=== PATIENT | male | born 1995 | race Caucasian/White ===

== ENCOUNTER 2017-10-18 17:32 | Emergency (ER) | payer OTHER ==
[2017-10-18 17:43] VITALS: BP 149/79
--- NOTE | 2017-10-18 19:10 | EDM.PDOC ---
ED HPI GENERAL MEDICAL PROBLEM - General Chief Complaint: Upper Extremity Injury/Pain Stated Complaint: RIGHT ARM INJURY AT WORK Time Seen by Provider: 10/18/17 18:06 Source of Information: Reports: Patient History Limitations: Reports: No Limitations - History of Present Illness INITIAL COMMENTS - FREE TEXT/NARRATIVE: 22-year-old male presents for evaluation and treatment of injury to the right forearm. patient reports that he was at work. States that the wind picked up causing a gate to close on his right forearm. He reports pain extending from his right wrist to his right elbow. Reports numbness and tingling. Reports decreased range of motion due to the pain. This occurred around 1530 this afternoon. No interventions prior to arrival such as Tylenol, Motrin or ice. Right Arm Pain Score (Numeric/FACES): 6 - Related Data Allergies Allergy/AdvReac Type Severity Reaction Status Date / Time No Known Allergies Allergy Verified 10/18/17 17:43 Home Meds: Home Meds . [No Known Home Meds] 03/24/14 [History] Past Medical History - Past Health History Medical/Surgical History: Denies Medical/Surgical History - Past Surgical History HEENT Surgical History: Reports: Tonsillectomy Social & Family History - Tobacco Use Smoking Status *Q: Never Smoker Second Hand Smoke Exposure: No - Caffeine Use Caffeine Use: Reports: None - Recreational Drug Use Recreational Drug Use: No Review of Systems - Review of Systems Review Of Systems: See Below Musculoskeletal: Reports: Arm Pain (righr forearm), Other (swelling to the mid right forearm) Skin: Reports: Bruising (mid right forearm). Denies: Wound Neurological: Reports: Numbness (right forearm), Tingling (right forearm) ED EXAM, GENERAL - Physical Exam Exam: See Below Exam Limited By: No Limitations General Appearance: Alert, WD/WN, No Apparent Distress Respiratory/Chest: No Respiratory Distress Cardiovascular: Normal Peripheral Pulses, Regular Rate, Rhythm Peripheral Pulses: 3+: Radial (R) Extremities: Normal Inspection, Normal Capillary Refill, Other (tenderness to palpation to the mid right forearm, no tenderness to he right wrist or elbow, no open wounds, minor swelling to the mid right forearm) Neurological: Alert, Oriented, Normal Cognition Psychiatric: Normal Affect, Normal Mood Skin Exam: Warm, Dry, Normal Color, Ecchymosis (minor bruising to the mid right forearm) Course - Vital Signs Last Recorded V/S: Last Vital Signs Temp 98.1 F 10/18/17 17:41 Pulse 88 10/18/17 17:41 Resp 18 10/18/17 17:41 BP 149/79 H 10/18/17 17:41 Pulse Ox 99 10/18/17 17:41 - Orders/Labs/Meds Orders: Active Orders 24 hr Category Date Time Status Forearm 2V Rt [CR] Stat Exams 10/18/17 18:07 Taken - Radiology Interpretation Free Text/Narrative:: X-ray of the right forearm shows no acute fractures or dislocations. - Re-Assessments/Exams Free Text/Narrative Re-Assessment/Exam: 10/18/17 19:07 I reviewed the x-ray results with the patient. Soft tissue injury. Recommend ice , Tylenol Motrin. Educated on symptoms of compartment syndrome. Instructed to return to the ED if these present. Follow-up with primary care if not much better in one week. Discharge instructions as documented. Departure - Departure Time of Disposition: 19:08 Disposition: Home, Self-Care 01 Condition: Good Clinical Impression: Forearm contusion - Discharge Information *PRESCRIPTION DRUG MONITORING PROGRAM REVIEWED*: No *COPY OF PRESCRIPTION DRUG MONITORING REPORT IN PATIENT KATHLEEN: No Instructions: Contusion, [id number] Referrals: PCP,None [Primary Care Provider] - Forms: ED Department Discharge Additional Instructions: Recommend Tylenol, Motrin, elevation and ice. Expect to be sore for the next week. If your symptoms persist beyond one week follow-up with family medicine. Recommend Ruth De La Torre or Melania Lewis at the [facility]. Call [phone] schedule with one of these providers. Please return to the ER if your symptoms change or worsen. In particular would like to your pain not relieved by Tylenol or Motrin, pallor to the hand or forearm, numbness to the hand or forearm or any other concerning symptom. - My Orders Last 24 Hours: My Active Orders 10/18/17 18:07 Forearm 2V Rt [CR] Stat - Assessment/Plan Last 24 Hours: My Active Orders 10/18/17 18:07 Forearm 2V Rt [CR] Stat
--- NOTE | 2017-10-19 07:41 | CR ---
Right forearm: Two views of the right forearm were obtained. Comparison: No previous study. No fracture or other abnormality is seen. Mild soft tissue swelling is present. Impression: 1. No bony abnormality is seen on right forearm study. Diagnostic code #1
== END 2017-10-18 19:33 | disposition home or self-care (01) ==
LOC: JD.ED 17:32
DX: S50.11XA Contusion of right forearm, initial encounter (principal); W23.0XXA Caught, crushed, jammed, or pinched between moving objects, initial encounter; Y99.0 Civilian activity done for income or pay
CPT/HCPCS: 73090-26-RT; 73090-RT; 99283

== ENCOUNTER 2018-05-22 19:47 | Emergency (ER) | payer BC, OTHER ==
[2018-05-22 19:56] VITALS: BP 148/85
[2018-05-22] MEDS ORDERED: Dexamethasone 4 MG/ML SDV IVPUSH ONE (20:17)
[2018-05-22] MEDS ORDERED: diphenhydrAMINE 50 MG/ML SDV IVPUSH ONE (20:17)
[2018-05-22] MEDS ORDERED: Famotidine 20 MG/2 ML SDV IVPUSH ONE (20:18)
[2018-05-22] MEDS ORDERED: Sodium Chloride 0.9% 10 ML Syringe FLUSH PRN (20:18)
--- NOTE | 2018-05-22 21:30 | EDM.PDOC ---
ED HPI GENERAL MEDICAL PROBLEM - General Chief Complaint: Allergic Reaction Stated Complaint: BREAKING OUT IN HIVES Time Seen by Provider: 05/22/18 20:05 Source of Information: Reports: Patient History Limitations: Reports: No Limitations - History of Present Illness INITIAL COMMENTS - FREE TEXT/NARRATIVE: 22 y/o male presents to ER with cc rash. He reports that the rash started yesterday about 12:00. He reports that he took Benadryl 25 mg every 6 hours yesterday but the rash seems to be getting worse. He denies any chest pain no shortness of breath no difficulty swallowing. He reports he has not changed any soaps or detergents or foods. His PCP is Parish Chavez. Onset Date: 05/21/18 Onset Time: 12:00 Duration: Getting Worse Location: Reports: Generalized Severity: Mild Improves with: Reports: None Worsens with: Reports: None Associated Symptoms: Reports: Rash - Related Data Allergies Allergy/AdvReac Type Severity Reaction Status Date / Time No Known Allergies Allergy Verified 05/22/18 19:56 Home Meds: Home Meds predniSONE [Prednisone] 20 mg PO DAILY 5 Days #10 tablet 05/22/18 [Rx] Past Medical History - Past Health History Medical/Surgical History: Denies Medical/Surgical History - Past Surgical History HEENT Surgical History: Reports: Tonsillectomy Social & Family History - Tobacco Use Smoking Status *Q: Never Smoker - Caffeine Use Caffeine Use: Reports: None - Recreational Drug Use Recreational Drug Use: No ED ROS ALLERGIC REACTION - Review of Systems Review Of Systems: See Below Constitutional: Reports: No Symptoms. Denies: Fever, Chills, Decreased Appetite HEENT: Reports: No Symptoms. Denies: Throat Swelling Respiratory: Reports: No Symptoms. Denies: Shortness of Breath Cardiovascular: Reports: No Symptoms. Denies: Chest Pain Endocrine: Reports: No Symptoms GI/Abdominal: Reports: No Symptoms : Reports: No Symptoms Musculoskeletal: Reports: No Symptoms. Denies: Neck Pain Skin: Reports: Rash Neurological: Reports: No Symptoms Psychiatric: Reports: No Symptoms Hematologic/Lymphatic: Reports: No Symptoms Immunologic: Reports: No Symptoms ED EXAM GENERAL NO PERIP PULSE - Physical Exam Exam: See Below Exam Limited By: No Limitations General Appearance: Alert, WD/WN, No Apparent Distress Nose: Normal Inspection, Normal Mucosa, No Blood Throat/Mouth: Normal Inspection, Normal Lips, Normal Teeth, Normal Gums, Normal Oropharynx, Normal Voice, No Airway Compromise Head: Atraumatic, Normocephalic. No: Facial Swelling Neck: Normal Inspection, Supple, Non-Tender, Full Range of Motion Respiratory/Chest: No Respiratory Distress, Lungs Clear, Normal Breath Sounds, No Accessory Muscle Use, Chest Non-Tender Cardiovascular: Normal Peripheral Pulses, Regular Rate, Rhythm, No Edema, No Gallop, No JVD, No Murmur, No Rub Neurological: Alert, Oriented, CN II-XII Intact, Normal Cognition, Normal Gait, Normal Reflexes, No Motor/Sensory Deficits Skin Exam: Warm, Dry, Intact, Normal Color, Rash, Other (Generalized macular papular rash noted) Lymphatic: No Adenopathy Course - Vital Signs Last Recorded V/S: Last Vital Signs Temp 98.2 F 05/22/18 19:54 Pulse 91 05/22/18 19:54 Resp 18 05/22/18 19:54 BP 148/85 H 05/22/18 19:54 Pulse Ox 99 05/22/18 19:54 - Orders/Labs/Meds Orders: Active Orders 24 hr Category Date Time Status Sodium Chloride 0.9% [Saline Flush] Med 05/22/18 20:18 Active 10 ml FLUSH ASDIRECTED PRN Saline Lock Insert [OM.PC] Routine Oth 05/22/18 20:18 Ordered Medication Orders Sodium Chloride (Saline Flush) 10 ml FLUSH ASDIRECTED PRN PRN Reason: Keep Vein Open Last Admin: 05/22/18 20:30 Dose: 10 ml Meds: Medications Generic Name Dose Route Start Last Admin Trade Name Freq PRN Reason Stop Dose Admin Sodium Chloride 10 ml 05/22/18 20:18 05/22/18 20:30 Saline Flush FLUSH 10 ml ASDIRECTED PRN Administration Keep Vein Open Discontinued Medications Generic Name Dose Route Start Last Admin Trade Name Freq PRN Reason Stop Dose Admin Dexamethasone 4 mg 05/22/18 20:17 05/22/18 20:29 Dexamethasone IVPUSH 05/22/18 20:18 4 mg ONETIME ONE Administration Diphenhydramine HCl 25 mg 05/22/18 20:17 05/22/18 20:25 Benadryl IVPUSH 05/22/18 20:18 25 mg ONETIME ONE Administration Famotidine 20 mg 05/22/18 20:18 05/22/18 20:27 Pepcid IVPUSH 05/22/18 20:19 20 mg ONETIME ONE Administration - Re-Assessments/Exams Free Text/Narrative Re-Assessment/Exam: 05/22/18 21:31 Patient did receive IV Decadron, Benadryl and Pepcid in his condition did improve. I will discharge home with a short course of prednisone. I will instruct the patient to continue taking Benadryl for his symptoms. Departure - Departure Time of Disposition: 21:32 Disposition: Home, Self-Care 01 Condition: Good Clinical Impression: Chronic pruritus - Discharge Information *PRESCRIPTION DRUG MONITORING PROGRAM REVIEWED*: Not Applicable *COPY OF PRESCRIPTION DRUG MONITORING REPORT IN PATIENT KATHLEEN: Not Applicable Prescriptions: predniSONE [Prednisone] 20 mg PO DAILY 5 Days #10 tablet Instructions: Rash, Allergies, Adult, [id number] Referrals: Albert Chavez PA-C [Primary Care Provider] - Forms: ED Department Discharge - My Orders Last 24 Hours: My Active Orders 05/22/18 20:18 Sodium Chloride 0.9% [Saline Flush] 10 ml FLUSH ASDIRECTED PRN Saline Lock Insert [OM.PC] Routine - Assessment/Plan Last 24 Hours: My Active Orders 05/22/18 20:18 Sodium Chloride 0.9% [Saline Flush] 10 ml FLUSH ASDIRECTED PRN Saline Lock Insert [OM.PC] Routine
== END 2018-05-22 21:41 | disposition home or self-care (01) ==
LOC: JD.ED 19:47
DX: L29.9 Pruritus, unspecified (principal)
CPT/HCPCS: 96374; 96375; 99282; J1100; J1200; J3490; 99283

== ENCOUNTER 2018-07-13 21:17 | Emergency (ER) | payer BC ==
[2018-07-13 21:31] VITALS: BP 135/76
[2018-07-13] MEDS ORDERED: Sodium Chloride 0.9% 1,000 ML IV ONE (21:44)
[2018-07-13] MEDS ORDERED: Ondansetron 4 MG/2 ML SDV IVPUSH ONE (21:44)
--- NOTE | 2018-07-13 21:58 | EDM.PDOC ---
ED HPI GENERAL MEDICAL PROBLEM - General Chief Complaint: Gastrointestinal Problem Stated Complaint: VOMITING Time Seen by Provider: 07/13/18 21:24 Source of Information: Reports: Patient, Family History Limitations: Reports: No Limitations - History of Present Illness INITIAL COMMENTS - FREE TEXT/NARRATIVE: 23 yo M comes in with complaints of abdominal pain, nausea and vomiting since 1330. He states he was eating at [employer] and had chicken, rice and a [place], and within 30 minutes started to have N/V/D. He has never had anything like this before. He states the abdominal pain is cramping in nature, comes and goes, and is a 7-8/10. He also c/o of dizziness, especially with standing. He denies any blood in vomit or stool. Describes the vomit as "stomach acid" and the diarrhea as "white to escoto". He tried to drink water but is unable to keep any fluids down. No other symptoms at this time. Abdominal Pain Score (Numeric/FACES): 5 - Related Data Allergies Allergy/AdvReac Type Severity Reaction Status Date / Time No Known Allergies Allergy Verified 07/13/18 21:29 Home Meds: Home Meds predniSONE [Prednisone] 20 mg PO DAILY 5 Days #10 tablet 05/22/18 [Rx] Past Medical History - Past Health History Medical/Surgical History: Denies Medical/Surgical History - Past Surgical History HEENT Surgical History: Reports: Tonsillectomy Social & Family History - Caffeine Use Caffeine Use: Reports: None ED ROS GENERAL - Review of Systems Review Of Systems: See Below Constitutional: Reports: No Symptoms, Chills. Denies: Fever HEENT: Reports: No Symptoms Respiratory: Reports: Shortness of Breath. Denies: Wheezing, Pleuritic Chest Pain, Cough Cardiovascular: Reports: No Symptoms Endocrine: Reports: No Symptoms GI/Abdominal: Reports: Abdominal Pain, Diarrhea, Nausea, Vomiting. Denies: Bloody Stool, Hematemesis, Hematochezia : Reports: No Symptoms Musculoskeletal: Reports: No Symptoms Skin: Reports: Pallor Neurological: Reports: Dizziness Psychiatric: Reports: No Symptoms Hematologic/Lymphatic: Reports: No Symptoms Immunologic: Reports: No Symptoms ED EXAM, GI/ABD - Physical Exam Exam: See Below Exam Limited By: No Limitations General Appearance: Alert, WD/WN, Mild Distress Eyes: Bilateral: Normal Appearance, EOMI Ears: Normal External Exam, Hearing Grossly Normal Throat/Mouth: Normal Inspection, Normal Lips, Normal Teeth, Normal Gums, Normal Oropharynx, Normal Voice, No Airway Compromise Respiratory/Chest: No Respiratory Distress, Lungs Clear, Normal Breath Sounds, No Accessory Muscle Use, Chest Non-Tender Cardiovascular: Normal Peripheral Pulses, No Edema, No Gallop, No JVD, No Murmur , No Rub, Tachycardia GI/Abdominal Exam: Soft, No Organomegaly, No Distention, Tender (mildly TTP throughout all quadrants), Abnormal Bowel Sounds (hypoactive). No: Distended, Guarding, Rigid, Rebound Neurological: Alert, Oriented, CN II-XII Intact, Normal Cognition, Normal Gait, Normal Reflexes, No Motor/Sensory Deficits Psychiatric: Normal Affect, Normal Mood Skin Exam: Warm, Dry, Intact, Normal Color, No Rash Course - Vital Signs Last Recorded V/S: Last Vital Signs Temp 98.0 F 07/13/18 21:27 Pulse 99 07/13/18 21:27 Resp 18 07/13/18 21:27 BP 135/76 07/13/18 21:27 Pulse Ox 100 07/13/18 21:27 Orthostatic Blood Pressure [ 136/88 Sitting] Orthostatic Blood Pressure [ 120/75 Standing] Orthostatic Blood Pressure [ 120/66 Supine] - Orders/Labs/Meds Orders: Active Orders 24 hr Category Date Time Status Orthostatic Vital Signs [RC] ASDIRECTED Care 07/13/18 21:47 Active WBC, STOOL [OP] Stat Lab 07/13/18 21:43 Ordered Labs: Laboratory Tests 07/13/18 07/13/18 Range/Units 21:45 21:45 WBC 16.09 H (4.23-9.07) K/mm3 RBC 6.22 H (4.63-6.08) M/mm3 Hgb 17.4 (13.7-17.5) gm/L Hct 51.0 (40.1-51.0) % MCV 82.0 (79.0-92.2) fl MCH 28.0 (25.7-32.2) pg MCHC 34.1 (32.2-35.5) g/dl RDW Std Deviation 38.3 (35.1-43.9) fL Plt Count 302 (163-337) K/mm3 MPV 10.2 (9.4-12.3) fl Neut % (Auto) 91.0 H (34.0-67.9) % Lymph % (Auto) 3.7 L (21.8-53.1) % [place] % (Auto) 4.9 L (5.3-12.2) % Eos % (Auto) 0.2 L (0.8-7.0) Baso % (Auto) 0.1 (0.1-1.2) % Neut # (Auto) 14.62 H (1.78-5.38) K/mm3 Lymph # (Auto) 0.60 L (1.32-3.57) K/mm3 [place] # (Auto) 0.79 (0.30-0.82) K/mm3 Eos # (Auto) 0.04 (0.04-0.54) K/mm3 Baso # (Auto) 0.02 (0.01-0.08) K/mm3 Manual Slide Review Abnormal smear Sodium 142 (136-145) mEq/L Potassium 4.3 (3.5-5.1) mEq/L Chloride 103 (98-107) mEq/L Carbon Dioxide 25 (21-32) mEq/L Anion Gap 18.3 H (5-15) BUN 25 H (7-18) mg/dL Creatinine 1.3 (0.7-1.3) mg/dL Est Cr Clr Drug Dosing 100.73 mL/min Estimated GFR (MDRD) > 60 (>60) mL/min BUN/Creatinine Ratio 19.2 H (14-18) Glucose 131 H (74-106) mg/dL Calcium 10.0 (8.5-10.1) mg/dL Magnesium 1.9 (1.8-2.4) mg/dl Total Bilirubin 0.7 (0.2-1.0) mg/dL AST 24 (15-37) U/L ALT 52 (16-63) U/L Alkaline Phosphatase 100 (46-116) U/L Total Protein 8.9 H (6.4-8.2) g/dl Albumin 4.9 (3.4-5.0) g/dl Globulin 4.0 gm/dL Albumin/Globulin Ratio 1.2 (1-2) Meds: Medications Discontinued Medications Generic Name Dose Route Start Last Admin Trade Name Freq PRN Reason Stop Dose Admin Sodium Chloride 1,000 mls @ 999 mls/hr 07/13/18 21:44 07/13/18 21:57 Normal Saline IV 07/13/18 22:44 999 mls/hr ONETIME ONE Administration Ondansetron HCl 4 mg 07/13/18 21:44 07/13/18 21:58 Zofran IVPUSH 07/13/18 21:45 4 mg ONETIME ONE Administration - Re-Assessments/Exams Free Text/Narrative Re-Assessment/Exam: 07/13/18 21:44 Ordered CBC, CMP, Magnesium, Stool WBC 1L Bolus IVF and 4mg Zofran IVPush Orthostatic VS 07/13/18 22:12 Orthostatic VS positive- likely 2/2 dehydration CBC shows elevated WBC 16.09- likely stress response and 2/2 infection/ inflammation 07/13/18 22:38 CMP shows elevated AGap 18.3 likely 2/2 dehydration, BUN 25, Glu 131, Protein 8.9 Mag WNL at 1.9 Stool WBC pending sample 07/13/18 22:53 At this time pt is feeling "much better" with IVF and Zofran. He is unable to provide a stool sample at this time. He is stable enough to go home. Will send home with antiemetics. Departure - Departure Time of Disposition: 22:54 Disposition: Home, Self-Care 01 Clinical Impression: Vomiting and diarrhea Food poisoning Qualifiers: Encounter type: initial encounter Injury intent: accidental or unintentional Qualified Code(s): T62.91XA - Toxic effect of unspecified noxious substance eaten as food, accidental (unintentional), initial encounter - Discharge Information *PRESCRIPTION DRUG MONITORING PROGRAM REVIEWED*: Not Applicable *COPY OF PRESCRIPTION DRUG MONITORING REPORT IN PATIENT KATHLEEN: Not Applicable Instructions: Nausea and Vomiting, Adult, [id number], Diarrhea, Adult, Easy- to-Read, Food Poisoning, [id number] Referrals: Albert Chavez PA-C [Primary Care Provider] - Forms: ED Department Discharge Additional Instructions: You were seen in the ED today for new onset abdominal pain, nausea and vomiting after eating at [employer] today. You had labs drawn, stool sample, IV fluids and anti-emetic medication given while here. It is likely you got food poisoning from the chicken or rice as your symptoms started within 30 minutes after eating. Symptoms usually resolve within 24 hours and only require supportive care. At this time, you are stable enough to go home. Will send you home with anti-emetic medication. Recommend plenty of fluids and rest. Recommend against taking an anti-diarrheal at this time, as you need to let the infection leave the body. If you do eat, recommend bland diet (BRAT diet- banana , rice, applesauce, toast). Please return to ED if new or worsening symptoms. - My Orders Last 24 Hours: My Active Orders 07/13/18 21:43 WBC, STOOL [OP] Stat 07/13/18 21:47 Orthostatic Vital Signs [RC] ASDIRECTED - Assessment/Plan Last 24 Hours: My Active Orders 07/13/18 21:43 WBC, STOOL [OP] Stat 07/13/18 21:47 Orthostatic Vital Signs [RC] ASDIRECTED
== END 2018-07-13 22:59 | disposition home or self-care (01) ==
LOC: JD.ED 21:17
DX: T62.91XA Toxic effect of unspecified noxious substance eaten as food, accidental (unintentional), initial encounter (principal); R11.10 Vomiting, unspecified; R19.7 Diarrhea, unspecified; Z79.899 Other long term (current) drug therapy
CPT/HCPCS: 36415; 80053; 83735; 85025; 96361; 96374; 99284; J2405; J7040

== ENCOUNTER 2021-05-24 19:45 | Emergency (ER) | payer BC ==
[2021-05-24] MEDS ORDERED: Lactated Ringers 1,000 ML IV ONE (19:59)
[2021-05-24] MEDS ORDERED: Iopamidol 612 MG/ML 50 ML SDV IVPUSH ONE (20:00)
[2021-05-24] MEDS ORDERED: Lactated Ringers 1,000 ML IV SCH (20:00)
[2021-05-24] MEDS ORDERED: Iopamidol 612 MG/ML 100 ML Bottle IVPUSH ONE (20:00)
[2021-05-24] MEDS ORDERED: Sodium Chloride 0.9% 10 ML SDV FLUSH ONE (20:00)
[2021-05-24] MEDS ORDERED: Ondansetron 4 MG/2 ML SDV IVPUSH ONE (20:02)
[2021-05-24] MEDS ORDERED: Diphtheria,Pertussis(Acell),Tetanus Vaccine 0.5 ML Syringe IM ONE (21:21)
[2021-05-24 22:02] VITALS: BP 137/73; PULSE 98
== END 2021-05-24 21:30 | disposition home or self-care (01) ==
LOC: JD.ED 19:45
DX: F10.129 Alcohol abuse with intoxication, unspecified (principal); Z72.0 Tobacco use; Y90.5 Blood alcohol level of 100-119 mg/100 ml; Z23 Encounter for immunization
CPT/HCPCS: 36415; 70450; 71260; 72125; 74177; 80053; 80306; 80307; 81003; 85025; 85610; 85730; 90471; 90715; 96374; 99285; J2405; J7120; Q9967